=== PATIENT | female | born 2000 | race Caucasian/White ===

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

== ENCOUNTER 2019-08-14 18:54 | Inpatient (IN) | payer OTHER ==
[~2019-08-14] VITALS: Ht 172.7 cm; Wt 90.9 kg
[2019-08-14 19:12] VITALS: BP 118/69; PULSE 96; TEMP 97.9
[2019-08-14] MEDS ORDERED: PRENATAL 191 TAB PO (19:24)
[2019-08-14 19:30] VITALS: BP 118/69; PULSE 96; TEMP 97.9
[2019-08-14 20:31] LABS: BASO % 0.2 % (0.0-2.0); EOS % 0.3 % (0-4.0); GRAN # 7.2 (1.4-6.5); GRAN % 66.7 % (42.2-75.2); HEMOGLOBIN 12.5 g/dl (12.0-15.0); LYMPH # 2.4 (1.2-3.4); MEAN CELL VOLUME 90 fl (80.0-95.0); MEAN CORPUSCULAR HEMOGLOBIN 31 pg (26.0-32.0); MEAN CORPUSCULAR HGB CONC 34 g/dl (33.0-37.0); MEAN PLATELET VOLUME 12.5 fl (7.4-10.4); MONO # 1.1 (0.1-0.6); MONO % 10.2 % (1.7-9.3); PLATELET COUNT 176 K/mm3 (130-400); REDCELL DISTRIBUTION WIDTH-CV 12.8 % (11.5-14.5)
[2019-08-14 20:32] LABS: HEMATOCRIT 36.7 % (35.0-45.0)
[2019-08-14 21:00] VITALS: BP 128/69; PULSE 83
[2019-08-15] VITALS (61 sets, daily range): BP systolic 99–136; BP diastolic 51–87; PULSE 57–107; TEMP 98–99.7
--- NOTE | 2019-08-15 08:15 | NUR ---
Pt up to bathroom. Pitocin infusion noted to not be connected to patient. Pitocin infusion started at 2mU.
--- NOTE | 2019-08-15 11:17 | NUR ---
Pt up to bathroom. Requesting epidural. Miguelina Alejandro CRNA notified. Pt ambulated back to EOB. LR bolus infusing. Difficulty tracing FHR due to maternal positon. RN at bedside adjusting montiors. FHR audible. Test dose performed at 1141. Pt tolerated well. No adverse effects noted.
--- NOTE | 2019-08-15 13:35 | NUR ---
Dr. Chaves at bedside. SVE per provider . Pt repositioned LL with side stirrups. Late decelerations noted with moderate variabiltiy and accelerations. Dr. Chaves reviews FHR strip. Orders to reposition. Pt repositioned RL with side stirrups. Variable deceleration noted. 1350-Pt repositioned sitting upright WL. FHR returns to baseline. No decels. Dr. Chaves on unit. Reviews FHR strip. No new orders at this time.
--- NOTE | 2019-08-15 19:00 | NUR ---
1814- Bedside report from Mary,CLINTON. at bedside preparing room for delivery. Patient currently in stirrups and ready to push with contractions. 1817- Patient begins pushing with contractions with . 1856- of viable baby girl. Cord clamped and cut by FOB. Cord blood obtained. Pitocin off. NB care assumed by JorjeNursesamuel RN. 1900- Spontaneous delivery of placenta. Pitocin infusing at 333 ml/hr per protocol. Fundus massaged to firm by RN. Left labial laceration repaired by MD. Local anesthetic used. Pericare provided. Ice pack applied. 1899- PP Recovery.
--- NOTE | 2019-08-16 | NUR ---
Report given to CLINOTN Garcia to take over care of this patient at this time.
[2019-08-16 00:05] VITALS: BP 93/47; PULSE 81; TEMP 98.5
[2019-08-16 03:00] VITALS: BP 113/49; PULSE 74; TEMP 98
[2019-08-16 07:20] VITALS: BP 110/68; PULSE 72; TEMP 98.1
[2019-08-16] MEDS ORDERED: IBU600 MG PO (09:05)
[2019-08-16] MEDS ORDERED: PERCOCET 325 MG1 TA2 PO (09:05)
--- NOTE | 2019-08-16 10:01 | NUR ---
Initial visit attempt; Family resting, Negative Assembler left card of congratulations for the of their son and information regarding the availability of spiritual care at our hospital.
[2019-08-16 16:35] VITALS: BP 127/68; PULSE 91; TEMP 96.7
--- NOTE | 2019-08-16 20:45 | NUR ---
PT,PTS MOTHER, AND FOB HAVE MANY QUESTIONS ABOUT HOW OFTERN BABY AND MOTHER SHOULD BE ASESSED. THEY FEEL AND THOUGH IT HAS BEEN ONLY ONCE TODAY THAT THE BABY HAS BEEN ASSESSED. REASSURED THAT ASSESSMENTS ARE BEING DONE ON TIME - THAT BABY AND MOM ARE NORMAL CARE AND DOING VERY WELL FROM IN OUR NURSING REPRORTS THERFORE ONCE PER 12 HR SHIFT IS APPRORIATE FOR ASSESSMENTS AND IF ANYTHING WAS QUESTIONABLE THEN CHECKS WOULD BE DONE MORE OFTEN. GRANDMOTHER HAD QUESTIONED THE SHOT BABY RECEIVED IN DELIVERY ROOM.TEACHING RE VIT K COVERED. NURSE GIVING THE VIT K AT TIME OF DELIVERY SAYS SHE DID TELL THE PARENTS WHAT BABY WAS GETTING. FAMILY SEEMS COMFORTABLE WITH DISCUSSION. GRANDMOTHER LEAVING FOR THE NIGHT. MOM AND BABY ASSESSMENTS AT THIS TIME REMAIN WNL.
[2019-08-16 21:30] VITALS: BP 130/62; PULSE 78; TEMP 98.8
[2019-08-17 07:13] VITALS: BP 114/68; PULSE 78; TEMP 98.1
[2019-08-17] MEDS ORDERED: BREASTPUMP MC (12:19)
== END 2019-08-17 13:43 | disposition home or self-care (01) | DRG 807 ==
LOC: LDRO 18:54 → OB 19:00 → LDR 19:00 → OB 08-15 22:00
PROVIDERS: ADMIT Obstetrics & Gynecology
PROC: 10E0XZZ Delivery of Products of Conception, External Approach (ICD-10-PCS; principal; 2019-08-15)
PROC: 10907ZC Drainage of Amniotic Fluid, Therapeutic from Products of Conception, Via Natural or Artificial Opening (ICD-10-PCS; 2019-08-15)
PROC: 3E033VJ Introduction of Other Hormone into Peripheral Vein, Percutaneous Approach (ICD-10-PCS; 2019-08-15)
PROC: 0UQMXZZ Repair Vulva, External Approach (ICD-10-PCS; 2019-08-15)
PROC: 0UQKXZZ Repair Hymen, External Approach (ICD-10-PCS; 2019-08-15)
DX: O70.0 First degree perineal laceration during delivery (principal); Z37.0 Single live birth; Z3A.39 39 weeks gestation of pregnancy
CPT/HCPCS: J2590; J2795; J7120

== ENCOUNTER 2023-07-29 13:35 | Inpatient (IN) | payer OTHER ==
[2023-07-29] VITALS (41 sets, daily range): BP systolic 95–139; BP diastolic 52–73; PULSE 61–100; TEMP 98.3–99.2
[~2023-07-29] VITALS: Ht 172.7 cm; Wt 94.5 kg
[~2023-07-29 13:35] MED LIST changes: +BREASTPUMP MC; +IBU600 MG PO; +PERCOCET 325 MG1 TA2 PO; +PRENATAL 191 TAB PO
[2023-07-29 14:30] LABS: BASO % 0.2 % (0.0-2.0); EOS % 0.2 % (0.0-4.0); GRAN # 8.7 K/mm3 (1.4-6.5); GRAN % 71.7 % (42.2-75.2); HEMATOCRIT 36.3 % (37.0-47.0); HEMOGLOBIN 12.3 g/dl (12.5-16.0); LYMPH # 2.2 K/mm3 (1.2-3.4); LYMPH % 18.3 % (20.0-51.0); MEAN CELL VOLUME 89 fl (80.0-100.0); MEAN CORPUSCULAR HEMOGLOBIN 30 pg (27-31); MEAN CORPUSCULAR HGB CONC 34 g/dl (33.0-37.0); MEAN PLATELET VOLUME 11.9 fl (7.4-10.4); MONO # 1.1 K/mm3 (0.1-0.6); MONO % 8.9 % (1.7-9.3); PLATELET COUNT 210 K/mm3 (130-400); REDCELL DISTRIBUTION WIDTH-CV 12.5 % (11.5-14.5)
--- NOTE | 2023-07-29 14:40 | NUR ---
PT AMBULATORY TO UNIT WITH SPOUSE. REPORTS SROM AT 1045 THIS MORNING. NO CTX. POSITIVE MOVEMENT. AMNITRACE POSITIVE FOR AMNIOTIC FLUID. SVE /-3. PT TOLERATED WELL. DR. GILLIS NOTIFIED WITH ADMIT ORDERS. EMF CAT 1. VS STABLE.
--- NOTE | 2023-07-29 18:15 | NUR ---
1815Bedside report from Alexandra Liriano RN. Pt breathing through contractions and requesting epidural. Nikhil Childress CRNA notified. LR bolus started. 1848Nikhil Childress CRNA at bedside for epidural placement. Pt to edge of bed. FHR tracing intermittently due to maternal position. Rn remains at bedside adj. EFM. 1853Epidural placed and single shot at this time by Nikhil Childress CRNA. See anesthesia record. 185Patient wedge left. EFM adjusted and tracing well. Plan of care and safety precautions reviewed with pt who verbalizes understanding. 1907Pt continues to breath through ctx. States no ctx pain relief. SVE 4/70/-2. Nikhil Childress CRNA at bedside and doses epidural. 1919Pt states pain improvement. Reports mild pressure at this time. Resting with call light within reach. 1949Catheter placed. SVE 5-6/80/-2. Adriana care provided and patient repositioned. Dr. Ram at bedside and reviews plan of care with patient and family. Resting with call light within reach.
--- NOTE | 2023-07-29 20:34 | NUR ---
4Patient reporting increased pressure. SVE 8/90/0. 6FHR audible 80 bmp. Repositioned lateral. LR bolus continues. Pitocin off. 2037FHR returns to baseline. 1Dr. Priddle updated on pt. See anesthesia record. Plan of care reviewed with pt and family who verbalize understanding.
--- NOTE | 2023-07-29 21:00 | NUR ---
2100Subtle FHR decels from baseline of 120's to 100bmp, lasting 45 seconds with spontaneous return to baseline. Ctx difficult to trace due to maternal position. Rn at bedside and adj. toco. Will continue to monitor.
--- NOTE | 2023-07-29 21:10 | NUR ---
2109Patient reporting increased rectal pressure. SVE /0. Pt high fowlers with knees together. Instructed pt to call with any increased pressure or urge to push. Pt verbalizes understanding.
--- NOTE | 2023-07-29 21:25 | NUR ---
2125FHR decel to 90bmp lasting 2min. SVE AL/+1. head noted to be ROP. Pt repositioned right lateral with left leg stirup. Plan of care reviewed. 2140FHR with moderate variability. No decels over last 15min. Pitocin at 2mu. Plan of care reviewed with pt who verbalizes understanding.
--- NOTE | 2023-07-29 22:30 | NUR ---
2230SVE C/+2. Pushes will with ctx. 2233Dr. Priddle updated. See physician notification. Catheter removed. 2244Dr. Rukhsanale at bedside for delivery. Pt repositioned. 2248Patient pushing with contractions with Dr. Ram at bedside. Strong maternal effort. 2254Spontaneous vaginal delivery of viable female . NC x1 reduced on perineum. Nares and mouth bulb suctioned by Dr. Ram. To mother's chest where dried and stimulated by nursery RN. Pitocin paused. 2255Report to Nataly Rosales RN who assumes care of pt at this time.
--- NOTE | 2023-07-29 23:00 | NUR ---
2300 REMAINS IN LR4. PLACENTA DELIVERED AT 2301. IV INFUSING.
[2023-07-30] VITALS: BP 121/56; PULSE 76
[2023-07-30 00:30] VITALS: BP 113/55; PULSE 86
[2023-07-30 01:00] VITALS: BP 113/54; PULSE 75
--- NOTE | 2023-07-30 01:00 | NUR ---
0100 IV TO INT. EPID CATH REMOVED. UP TO BR PER GAURAV. VOIDED 100CC PERICARE DONE. TO NSY PER W/C TO VIEW BABY BATH 0130 TO 214 PER W/C AND SHERRI WELL. ORIENTED TO ROOM. SCHEDULED MOTRIN AND TYLENOL GIVEN
[2023-07-30 04:00] VITALS: BP 124/55; PULSE 59; TEMP 98.4
[2023-07-30] MEDS ORDERED: MOTRIN 800800 MG/TAB PO (06:15)
[2023-07-30 08:00] VITALS: BP 130/59; PULSE 69; TEMP 97.6
--- NOTE | 2023-07-30 10:29 | NUR ---
Initial visit; Patient thanked Product Management Specialist for looking in on her, offering congratulations and God's blessings for the of her daughter. Product Management Specialist thanked mom for choosing our hospital and hopes she had a good experience here. She states that she has. Geraldine was feeding baby, Product Management Specialist cut visit short.
[2023-07-30 20:30] VITALS: BP 120/53; PULSE 64; TEMP 98
[2023-07-31 07:47] VITALS: BP 113/66; PULSE 78; TEMP 98.2
== END 2023-07-31 10:30 | disposition home or self-care (01) | DRG 807 ==
LOC: LDRO 13:35 → LDR 14:10 → OB 14:10
PROVIDERS: ADMIT Obstetrics & Gynecology
PROC: 10E0XZZ Delivery of Products of Conception, External Approach (ICD-10-PCS; principal; 2023-07-29)
DX: O42.92 Full-term premature rupture of membranes, unspecified as to length of time between rupture and onset of labor (principal); Z37.0 Single live birth; O69.81X0 Labor and delivery complicated by cord around neck, without compression, not applicable or unspecified; Z3A.39 39 weeks gestation of pregnancy
CPT/HCPCS: J2590; J2795; J7120